=== PATIENT | male | born 1965 | race African-American/Black ===

== ENCOUNTER 2023-11-21 22:25 | Emergency (ER) | payer MEDICARE, MEDICAID ==
[~2023-11-21] VITALS: Ht 165.1 cm; Wt 75.0 kg
[~2023-11-21 22:25] MED LIST: ASPI-1160 PO; FOLI-43 PO; LIP40 PO; METO-385 MT; THIA100T72 PO
[2023-11-21 22:31] VITALS: O2SAT 99
[2023-11-21] MEDS: SODIUM CHLORIDE 0.9% 1,000 ML IV ONE (23:01)
[2023-11-21] MEDS: ONDANSETRON HCL 4MG/2ML INJ IV STA (23:01)
[2023-11-21 23:10] LABS: BASOPHILS % 1.6 % (0.0-2.0); DIFFERENTIAL COMMENT 0; EOSINOPHILS % 1.9 % (0.0-5.0); HEMATOCRIT. 36.9 % (42.0-52.0); HEMOGLOBIN. 12.4 g/dL (14.0-18.0); LYMPHOCYTES % 19.2 % (20.0-50.0); MEAN CORPUSCULAR HGB CONC 33.6 g/dL (31.0-37.0); MEAN CORPUSCULAR VOLUME 101.2 fL (80.0-94.0); MEAN PLATELET VOLUME 8.1 fl (7.4-10.4); MONOCYTES % 11.7 % (2.0-8.0); NEUTROPHILS % 65.6 % (40.0-76.0); PLATELET 314 x1000/uL (130-400); RED BLOOD CELL COUNT 3.65 mill/uL (4.7-6.1); RED CELL DISTRIBUTION WIDTH 12.9 % (11.6-14.6); WHITE BLOOD COUNT 5.8 x1000/uL (4.5-11.0)
[2023-11-21 23:26] LABS: AMMONIA 40 uMol/L (<32)
[2023-11-22 00:36] LABS: CHLORIDE 100 mEq/L (98-107); POTASSIUM 4.3 mEq/L (3.5-5.1); SODIUM 136 mEq/L (136-145)
[2023-11-22 00:37] LABS: CALCIUM 10.9 mg/dL (8.7-10.4); CARBON DIOXIDE 26 mEq/L (21-32)
[2023-11-22 00:42] LABS: CREATININE 0.8 mg/dL (0.6-1.3); GLUCOSE 101 mg/dL (70-105); UREA NITROGEN BLOOD 11 mg/dL (9-23)
[2023-11-22 00:44] LABS: ACETAMINOPHEN < 2 ug/mL (10-30)
[2023-11-22 01:25] LABS: ETHANOL BLOOD < 10 mg/dL (<10)
[2023-11-22 02:22] VITALS: BP 140/96; PULSE 111; RESP 20; TEMP 98.7
== END 2023-11-22 02:23 | disposition home or self-care (01) ==
LOC: ER 22:25
DX: R53.83 Other fatigue (principal); F10.21 Alcohol dependence, in remission; Z00.00 Encounter for general adult medical examination without abnormal findings
CPT/HCPCS: 80048; 80307; 80329; 80320; 82140; 82962; 83690; 85025; 36415; 70450; 96361; 96374; 99285; J2405; J7030; G0480

== ENCOUNTER 2023-11-23 06:15 | Emergency (ER) | payer MEDICARE, MEDICAID ==
[~2023-11-23] VITALS: Ht 167.6 cm; Wt 78.0 kg
[2023-11-23 06:17] VITALS: O2SAT 99
[2023-11-23 07:27] LABS: BASOPHILS % 1.7 % (0.0-2.0); DIFFERENTIAL COMMENT 0; EOSINOPHILS % 0.8 % (0.0-5.0); HEMATOCRIT. 38.4 % (42.0-52.0); HEMOGLOBIN. 12.9 g/dL (14.0-18.0); LYMPHOCYTES % 17.3 % (20.0-50.0); MEAN CORPUSCULAR HEMOGLOBIN 33.8 pg (28.0-32.0); MEAN CORPUSCULAR HGB CONC 33.7 g/dL (31.0-37.0); MEAN CORPUSCULAR VOLUME 100.1 fL (80.0-94.0); MEAN PLATELET VOLUME 7.5 fl (7.4-10.4); MONOCYTES % 11.6 % (2.0-8.0); NEUTROPHILS % 68.6 % (40.0-76.0); PLATELET 374 x1000/uL (130-400); RED BLOOD CELL COUNT 3.83 mill/uL (4.7-6.1)
[2023-11-23 07:35] LABS: CARBON DIOXIDE 24 mEq/L (21-32); CHLORIDE 104 mEq/L (98-107); POTASSIUM 3.7 mEq/L (3.5-5.1); SODIUM 138 mEq/L (136-145)
[2023-11-23 07:36] LABS: CALCIUM 10.1 mg/dL (8.7-10.4)
[2023-11-23 07:40] LABS: CREATININE 0.9 mg/dL (0.6-1.3)
[2023-11-23 07:41] LABS: AMMONIA < 17 uMol/L (<32); ETHANOL BLOOD < 10 mg/dL (<10); GLUCOSE 76 mg/dL (70-105); TROPONIN I HIGH SENSITIVITY 12 ng/L (3.0-53); UREA NITROGEN BLOOD 12 mg/dL (9-23)
[2023-11-23 07:42] LABS: ACETAMINOPHEN < 2 ug/mL (10-30); ALANINE AMINOTRANSFERASE 29 IU/L (10-49); ALBUMIN 4.5 g/dL (3.2-4.8); ASPARTATE AMINOTRANSFERASE 34 IU/L (<34); CREATINE KINASE 515 IU/L (46-171)
[2023-11-23 07:43] LABS: BILIRUBIN DIRECT 0.2 mg/dL (<=3.0); BILIRUBIN TOTAL 0.4 mg/dL (0.1-1.0); PROTEIN TOTAL 7.3 g/dL (6.0-8.3)
[2023-11-23 07:45] LABS: THYROID STIMULATING HORMONE 1.68 uIU/mL (0.55-4.78)
[2023-11-23 07:57] LABS: PROTHROMBIN TIME 10.8 sec (9.6-11.0)
[2023-11-23 08:25] LABS: CLARITY URINE CLEAR (CLEAR); COLOR URINE YELLOW (YELLOW); GLUCOSE URINE NEGATIVE (NEGATIVE); KETONES URINE NEGATIVE (NEGATIVE); LEUKOCYTE ESTERASE URINE NEGATIVE (NEGATIVE); NITRITE URINE NEGATIVE (NEGATIVE); OCCULT BLOOD URINE NEGATIVE (NEGATIVE); PROTEIN URINE NEGATIVE (NEGATIVE); SPECIFIC GRAVITY URINE 1.003 (1.005-1.030); UROBILINOGEN URINE 0.2 E.U./dL (0.2-1.0)
[2023-11-23 08:35] LABS: *AMPHETAMINES SCREEN URINE NEGATIVE (NEGATIVE); *BENZODIAZEPINES SCREEN URINE NEGATIVE (NEGATIVE)
[2023-11-23 08:36] LABS: *BARBITURATES SCREEN URINE NEGATIVE (NEGATIVE); *COCAINE SCREEN URINE NEGATIVE (NEGATIVE); CANNABINOID URINE SCREEN NEGATIVE (NEGATIVE); ECSTASY MDMA SCREEN URINE NEGATIVE (NEGATIVE); METHADONE URINE SCREEN NEGATIVE (NEGATIVE); OPIATES URINE SCREEN NEGATIVE (NEGATIVE); PHENCYCLIDINE URINE SCREEN NEGATIVE (NEGATIVE)
[2023-11-23 09:55] VITALS: BP 145/98; PULSE 100; RESP 16; TEMP 97.9
== END 2023-11-23 10:05 | disposition home or self-care (01) ==
LOC: ER 06:48
DX: R41.82 Altered mental status, unspecified (principal); F12.10 Cannabis abuse, uncomplicated; I10 Essential (primary) hypertension
CPT/HCPCS: 36415; 71045; 80048; 80076; 80305; 80307; 80320; 80329; 81003; 82140; 82550; 83605; 83880; 84443; 84484; 85025; 93005; 99285; G0480